=== PATIENT | male | born 1990 | race Caucasian/White ===

== ENCOUNTER 2022-05-13 02:34 | Day surgery (SDC) | payer BC, SELFPAY ==
[2022-05-08 09:38] VITALS: BMI 24.4
--- NOTE | 2022-05-08 09:52 | PC.NURSE ---
Report to the Outpatient Waiting Room, entrance under the green pavilion located off [facility], at time 0815 on date 05/13/22. OR Time: 1015. - You and your visitor will be asked a series of questions to screen for COVID 19 for your protection. - Only one visitor is allowed at this time. - The patient visitor is requested to leave or wait in car when not with patient. - A mask is required within the hospital. Patients may have clear liquids (water, carbonated beverages, clear teas, apple juice) until 3 hours prior to surgery with a maximum of 20 ounces. - No food from midnight until time of surgery Take the following medications with a SIP of water the morning of surgery: NONE Medications to discontinue per physician: NAPROXEN Date to take last dose: CHECK WITH DR. HUSSEIN Please no make-up, nail setswana, hairspray, perfume, deodorant, or body powder the day of surgery. No jewelry (including any body piercings) or valuables the day of surgery, leave them at home. Please take a shower or bath the night before, or the morning of, surgery with an antibacterial soap. Wear comfortable, loose fitting clothing. - Jewelry must be removed prior to entering the operating room. Rings and piercings that are not removed may be cut off. - The hospital will not accept responsibility for valuables. - Please leave all valuables, including medications, at home the day of surgery. If you are going home after surgery, a licensed transport driver must drive you home. - NO public transportation without another adult. - We recommend that an adult stay with you for 24 hours following discharge. - We also recommend that you do not drive, make important decision, drink alcoholic beverages, or take any drugs that were not prescribed by your health care provider for at least 24 hours after your discharge time. Follow any additional instructions given to you from your surgeon. BRING COPY OF COVID CARD WITH YOU DAY OF SURGERY. If you or anyone in your household have experienced Covid symptoms in the past week, please notify your surgeon or the nurse liaison at the phone number below for possible testing. Telephone instructions given to PT - KULWANT HALL and asked if any additional questions and then verbalized understanding. Patient advised to call surgeon office or pre surgery nurse liaison [phone] if any additional questions.
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
--- NOTE | 2022-05-12 06:39 | PM.HPGS ---
History of Present Illness History of Present Illness Consent: Risks, benefits, and alternatives have been discussed and questions answered. Patient agrees to proceed with procedure. Chief complaint: Nasal Fx Narrative: Braden Alexander is a 31 year old male [facility] Family History Family History Grandparent Cancer Grandparent Diabetes mellitus Hypertension Heart disease Social History Social History Smoking status: Never smoker Alcohol intake: current Alcohol use details: FEW TIMES/MONTH Substance use: current Substance use type: marijuana Living arrangements: with family Spiritual care concerns: No Meds Home Medications and Allergies Home Medications Medication Instructions Recorded Confirmed Type cetirizine 10 mg capsule (Zyrtec) 10 mg PO DAILY PRN Allergy Symptoms 04/30/22 05/08/22 History fluticasone propionate 50 1 spray intranasal DAILY 04/30/22 05/08/22 History mcg/actuation nasal spray,suspension (Flonase Allergy Relief) naproxen 250 mg tablet 250 mg PO BID 05/08/22 05/08/22 History Allergies Allergy/AdvReac Type Severity Reaction Status Date / Time No Known Allergies Allergy Unverified 05/08/22 09:35
[2022-05-13] VITALS (7 sets, daily range): BP systolic 103–121; BP diastolic 52–75; PULSE 43–63; RESP 14–16; TEMP 36.4–36.6; O2SAT 99–100
--- NOTE | 2022-05-13 06:36 | WPDHPUPDATE1 ---
History and Physical Update Update Date/Time: 05/13/22 06:36 History and Physical has been reviewed, including an updated exam of the patient. There are NO changes in the patient's condition. Risks, benefits, and alternatives have been discussed and questions answered. Patient agrees to proceed with procedure.
--- NOTE | 2022-05-13 08:30 | P.PNAN_ITS ---
Anes - Initial Pre Proc Eval Procedure: Operation Date: 05/13/22 10:15 Proposed Procedures p Closed Reduction Nasal Fracture - Javed Mccollum MD Date/Time: 05/13/22 08:30 Surgeon: Javed Mccollum MD Pre Op Diagnosis: Nasal Fx Patient Data Age: 31 Gender: M Height: 1.8 m Weight: 79.38 kg Allergies Allergy/AdvReac Type Severity Reaction Status Date / Time No Known Allergies Allergy Unverified 05/08/22 09:35 Home Medications Medication Instructions Recorded Confirmed Type cetirizine 10 mg capsule (Zyrtec) 10 mg PO DAILY PRN Allergy Symptoms 04/30/22 05/08/22 History fluticasone propionate 50 1 spray intranasal DAILY 04/30/22 05/08/22 History mcg/actuation nasal spray,suspension (Flonase Allergy Relief) naproxen 250 mg tablet 250 mg PO BID 05/08/22 05/08/22 History Patient hx anesthesia problems: none Family hx anesthesia problems: none Results Review: All pre-operative results and documents have been reviewed as part of the pre-operative evaluation. [facility] Surgical History Surgical History (Updated 05/13/22 @ 08:31 by Blanco Wilson MD) H/O myringotomy Hx of tonsillectomy Family History Family History Grandparent Cancer Grandparent Diabetes mellitus Hypertension Heart disease Social History Social History Smoking status: Never smoker Alcohol intake: current Alcohol use details: FEW TIMES/MONTH Substance use: current Substance use type: marijuana Living arrangements: with family Spiritual care concerns: No Anes - Eval Final PreProcedure Day of Procedure 05/13/22 08:30 Patient weight: normal Heart: regular rate and rhythm Lungs: clear to auscultation Airway: Mallampati scale class II Neurological: alert and oriented Last oral intake: >/= 8 hours ASA classification: I Emergent: no Anesthetic plan: proceed Results Review: All pre-operative results and documents have been reviewed as part of the pre- operative evaluation. Informed Consent: The patient's anesthetic plan and its attendant risks and benefits were discussed with the patient/family/POA. Questions were solicited and answers provided to the satisfaction of the patient/family/POA.
[2022-05-13] MEDS: ACETAMINOPHEN 500 MG TABLET 1000 MG PO (08:57)
[2022-05-13] MEDS: LACTATED RINGERS 1,000 ML 30 ML IV CONT (09:09)
[2022-05-13] MEDS: OXYMETAZOLINE HCL 0.05% NAS 15 ML BTL (*BKC) 1 SPRAY NASAL (10:14)
--- NOTE | 2022-05-13 10:16 | W.PM.PROC2 ---
Procedure Note - Detailed Date of Procedure 05/13/22 Pre-op Diagnosis Nasal Fx Post-op Diagnosis Same Procedure Performed Close reduction nasal fracture Surgeon Javed Mccollum MD Description of Procedure Patient was prepped and draped general anesthesia Afrin impregnated cottonoids placed in both sides of the nose digital pressure the nose was cracked into a river midline position benzoin and tape placed on an echo plastic dressing
[2022-05-13] MEDS: oxyCODONE HCL (*CRX) 5 MG TAB IR PO (11:32)
== END 2022-05-13 11:59 | disposition home or self-care (01) ==
PROVIDERS: Visit Provider Otolaryngology
PROC: 0NSBXZZ Reposition Nasal Bone, External Approach (ICD-10-PCS; CPT 21315; principal; 2022-05-13 10:15)
DX: S02.2XXA Fracture of nasal bones, initial encounter for closed fracture (principal); Y04.2XXA Assault by strike against or bumped into by another person, initial encounter; F12.90 Cannabis use, unspecified, uncomplicated
CPT/HCPCS: 21320; A9270; J2250; J2405; J2704; J3010; J7120